=== PATIENT | male | born 1995 | race Caucasian/White ===

== ENCOUNTER 2017-12-29 00:17 | Emergency (ER) | payer BC ==
[2017-12-29 00:28] VITALS: BP 120/79; PULSE 70; TEMP 97.5; BMI 25.8
--- NOTE | 2017-12-29 00:30 | PDOC ---
History of Present Illness <Rosaura Clemetne - Last Filed: 12/29/17 00:49> - General History Source: Patient Exam Limitations: No Limitations - History of Present Illness Initial Comments: 12/29/17 00:58 The patient is a 22 year old male with no significant PMH who presents to the emergency department with bilateral eye discomfort beginning approximately this morning. The patient reports falling asleep last night with his contacts in and waking up this morning unsure if they were still in his eyes. He reports looking for his contacts with his fingers in his eyes but was unable to feel them. He denies any eye pain. He denies headache or vision changes. He denies taking any medications. The patient denies chest pain, shortness of breath, headache and dizziness. Denies fever, chills, nausea, vomit, diarrhea and constipation. Denies dysuria, frequency, urgency and hematuria. Allergies: Bactrim. Past surgical history: None reported. Social history: No reported cigarette, alcohol, or drug use. [facility] <Braydon Owens - Last Filed: 12/29/17 00:58> - General Chief Complaint: Eye Problem Stated Complaint: FOREIGN OBJECT STUCK IN EYE Time Seen by Provider: 12/29/17 00:30 Past History - Past Medical History COPD: No - Suicide/Smoking/Psychosocial Hx Smoking History: Never smoked <Rosaura Clemente - Last Filed: 12/29/17 00:49> <Braydon Owens - Last Filed: 12/29/17 00:58> - Past Medical History Allergies/Adverse Reactions: Allergies Allergy/AdvReac Type Severity Reaction Status Date / Time sulfamethoxazole Allergy Hives Verified 12/29/17 00:26 [From Bactrim] trimethoprim [From Bactrim] Allergy Hives Verified 12/29/17 00:26 Home Medications: Ambulatory Orders NK [No Known Home Medication] 12/29/17 Review of Systems - Review of Systems Able to Perform ROS?: Yes Comments:: 12/29/17 00:58 GENERAL/CONSTITUTIONAL: No fever or chills. No weakness. HEAD, EYES, EARS, NOSE AND THROAT: (+) Eye discomfort. No change in vision. No ear pain or discharge. No sore throat. CARDIOVASCULAR: No chest pain or shortness of breath. RESPIRATORY: No cough, wheezing, or hemoptysis. GASTROINTESTINAL: No nausea, vomiting, diarrhea or constipation. GENITOURINARY: No dysuria, frequency, or change in urination. MUSCULOSKELETAL: No joint or muscle swelling or pain. No neck or back pain. SKIN: No rash NEUROLOGIC: No headache, vertigo, loss of consciousness, or change in strength/ sensation. ENDOCRINE: No increased thirst. No abnormal weight change. HEMATOLOGIC/LYMPHATIC: No anemia, easy bleeding, or history of blood clots. ALLERGIC/IMMUNOLOGIC: No hives or skin allergy. <Braydon Owens - Last Filed: 12/29/17 00:58> *Physical Exam - Vital Signs Last Vital Signs Temp Pulse Resp BP Pulse Ox 97.5 F L 70 18 120/79 98 12/29/17 00:26 12/29/17 00:26 12/29/17 00:26 12/29/17 00:26 12/29/17 00:26 <Rosaura Clemente - Last Filed: 12/29/17 00:49> - Vital Signs Last Vital Signs Temp Pulse Resp BP Pulse Ox 97.5 F L 70 18 120/79 98 12/29/17 00:26 12/29/17 00:26 12/29/17 00:26 12/29/17 00:26 12/29/17 00:26 - Physical Exam Comments: 12/29/17 00:58 GENERAL: Awake, alert, and fully oriented, in no acute distress HEAD: No signs of trauma EYES: PERRLA, EOMI, sclera anicteric, conjunctiva clear ENT: Auricles normal inspection, hearing grossly normal, nares patent, oropharynx clear without exudates. Moist mucosa NECK: Normal ROM, supple, no lymphadenopathy, JVD, or masses LUNGS: Breath sounds equal, clear to auscultation bilaterally. No wheezes, and no crackles HEART: Regular rate and rhythm, normal S1 and S2, no murmurs, rubs or gallops ABDOMEN: Soft, nontender, normoactive bowel sounds. No guarding, no rebound. No masses EXTREMITIES: Normal range of motion, no edema. No clubbing or cyanosis. No cords, erythema, or tenderness NEUROLOGICAL: Cranial nerves II through XII grossly intact. Normal speech, normal gait SKIN: Warm, Dry, normal turgor, no rashes or lesions noted. <Braydon Owens - Last Filed: 12/29/17 00:58> Medical Decision Making - Medical Decision Making 12/29/17 00:49 Pt presents to the ED concerned that both of his contacts have become lodged behind his eyes. Patient fell asleep with his contacts in yesterday and was unable to find them when he woke up. Denies other new complaints. Exam is normal except for mildly injected sclera. Will discharge home. <Rosaura Clemente - Last Filed: 12/29/17 00:49> *DC/Admit/Observation/Transfer - Discharge Dispostion Admit: No <Rosaura Clemente - Last Filed: 12/29/17 00:49> - Attestations Scribe Attestion: 12/29/17 00:58 Documentation prepared by Braydon Owens, acting as mobile paramedical examiner for Rosaura Clemente MD. <Braydon Owens - Last Filed: 12/29/17 00:58> Diagnosis at time of Disposition: Irritation of eye - Discharge Dispostion Disposition: HOME Condition at time of disposition: Good - Patient Instructions Printed Discharge Instructions: DI for Red Eye Additional Instructions: return to the ED for severe eye pain, decreased vision, other new or worsening symptoms.
== END 2017-12-29 00:58 | disposition home or self-care (01) ==
LOC: JER 00:17
DX: H57.8 Other specified disorders of eye and adnexa (principal)
CPT/HCPCS: 99281-25